=== PATIENT | male | born 1990 | race American Indian/Alaskan Native ===

== ENCOUNTER 2019-03-23 16:26 | Emergency (ER) | payer SELFPAY ==
[2019-03-23 16:52] VITALS: BP 129/77
--- NOTE | 2019-03-23 16:54 | Emergency Department Report ---
Chief Complaint: Urogenital-Male Stated Complaint: POSS CHLAMYDIA Time Seen by Provider: 03/23/19 16:53 - HPI History of Present Illness: This is a 28 y.o. male that presents with penile discharge and dysuria for 2 days. Recent exposure to STD. Reports symptoms are similar to the last time. Denies pelvic pain, back pain, testicular swelling or pain. - Exam Vital Signs: Vital Signs 03/23/19 16:50 Temperature 97.9 F Pulse Rate 74 Respiratory 18 Rate Blood Pressure 129/77 O2 Sat by Pulse 97 Oximetry Physical Exam: GENERAL: The patient is well looking, in no acute distress. CHEST: Air entry is adequate bilaterally with no rhonchi, and crackles. HEART: Sounds 1 and 2 are heard and are normal. Regular rate and rhythm, no tachycardic, murmurs, gallops, or rubs. ABDOMEN: Soft and nontender. Bowel sounds are present and normal. There is no hepatosplenomegaly. SKIN: Without rash. EXTREMITIES: Without edema, cyanosis, or clubbing. MSE screening note: Focused history and physical exam performed. Due to findings the following was ordered: ED Medical Decision Making - Medical Decision Making This is a 28-year-old -[place] male who presents with penile discharge for 2 days. Patient was examined by me. Vitals are stable and in no acute distress. Denies pelvic pain, low back pain. This is nonemergent. Patient referred to health Department, urgent care, and/or primary care doctor for follow-up. Discharged home in stable condition. Discussed prevention options. F/U with PCP or Health Department. ED Disposition for MSE Clinical Impression: Exposure to STD, Penile discharge Is pt being admited?: No Does the pt Need Aspirin: No Condition: Stable Instructions: Sexually Transmitted Diseases (ED), Safe Sex (ED) Additional Instructions: Continue safe sexual intercourse. Follow up with Primary Care Provider or health department. Referrals: VICKY ERNANDEZ MD [Referring] - 3-5 Days [facility] [Outside] - 3-5 Days [facility] [Outside] - 3-5 Days [facility] [Outside] - 3-5 Days Time of Disposition: 17:23
== END 2019-03-23 17:48 | disposition home or self-care (01) ==
LOC: ED 16:26
DX: A64 Unspecified sexually transmitted disease (principal)
CPT/HCPCS: 99282